=== PATIENT | male | born 1975 | race Caucasian/White ===

== ENCOUNTER 2017-01-09 11:29 | Emergency (ER) | payer SELFPAY | END 2017-01-09 12:31 | disposition home or self-care (01) | LOC: ED 11:29 | DX: R06.02 Shortness of breath (principal); T39.015A Adverse effect of aspirin, initial encounter; J45.909 Unspecified asthma, uncomplicated; F17.200 Nicotine dependence, unspecified, uncomplicated; Z88.8 Allergy status to other drugs, medicaments and biological substances; Z88.5 Allergy status to narcotic agent; Z79.899 Other long term (current) drug therapy | CPT/HCPCS: 96374; 99282; J1200 ==